=== PATIENT | female | born 1955 | race Caucasian/White ===

== ENCOUNTER 2017-04-02 07:35 | Day surgery (SDC) | payer OTHER ==
[2017-04-02] MEDS ORDERED: POVIDONE-IODINE 5% OPH PREP SOLN 30 ML ONE (09:19)
[2017-04-02] MEDS ORDERED: LIDOCAINE 2% INJ (20 MG/ML) 20 ML MDV ONE (09:19)
[2017-04-02] MEDS ORDERED: TETRACAINE HCL 0.5% OPH SOLN 2 ML ONE (09:19)
[2017-04-02] MEDS ORDERED: BUPIVACAINE HCL 0.75% INJ/PF (7.5 MG/1 ML) 10 ML SDV ONE ×2 (09:19→09:22)
[2017-04-02] MEDS ORDERED: THROMBIN (BOVINE) TOPICAL 5000 UNIT VIAL ONE (09:20)
[2017-04-02] MEDS ORDERED: NEO/POLYMYX B SULF/DEXAMETH OPH OINTMENT 3.5 GM ONE (09:20)
[2017-04-02] MEDS ORDERED: LIDOCAINE 2%/EPINEPHRINE INJ 20 ML VIAL ONE (09:21)
[2017-04-02] MEDS ORDERED: LIDOCAINE 2% INJ-PF (20 MG/ML) 10 ML AMPUL ONE (09:42)
[2017-04-02] MEDS ORDERED: PROPOFOL INJ 200 MG/20 ML VIAL IV ONE (09:42)
[2017-04-02] MEDS ORDERED: MIDAZOLAM 2 MG/2 ML INJ ONE (09:42)
[2017-04-02] MEDS ORDERED: FENTANYL CITRATE INJ/PF 100 MCG/2 ML AMPUL ONE (09:42)
[2017-04-02] MEDS: TOBRAMYCIN SULFATE/DEXAMETH OPH OINTMENT 3.5 GM ONE ×2 (10:56)
--- NOTE | 2017-04-02 11:28 | [facility] DISCHARGE SUMMARY E ---
[facility] Discharge Summary NAME: KILEY SALDAÑA AGE: 61Y ADMITTED: 04/02/2017 DISCHARGED: 04/02/2017 FINAL DIAGNOSIS: Bilateral upper eyelid dermatochalasis with visual field loss. HOSPITAL COURSE: The patient is a 61-year-old lady who underwent uneventful upper eyelid blepharoplasty. She will be discharged to home. She was instructed to resume preoperative medications. She will use TobraDex ointment on her eyelids tonight and begin Stratamed ointment twice a day tomorrow. She was instructed to use the blepharoplasty ice pack 10 minutes out of every hour while awake for the first 24 hours and to keep the head of her bed elevated. She will follow up in my office in 1 week. DICTATING PHYSICIAN: ANNIE SALMERON M.D. [id number] PHY#: [id number] ID: [id number] JOB#: [id number] ACCT: [id number] cc:ANNIE SALMERON M.D. >
--- NOTE | 2017-04-02 11:54 | [facility] OPERATIVE REPORT E ---
[facility] Operative Report NAME: KILEY SALDAÑA AGE: 61Y DATE OF SURGERY: 04/02/2017 ROOM: PREOPERATIVE DIAGNOSIS: Bilateral upper eyelid dermatochalasis with visual field loss. POSTOPERATIVE DIAGNOSIS: Bilateral upper eyelid dermatochalasis with visual field loss. PROCEDURE PERFORMED: Bilateral upper eyelid blepharoplasty. SURGEON: ANNIE SALMERON M.D. ANESTHESIA: Local with MAD. INDICATIONS FOR SURGERY: Patient complains that her upper lids interfere with her vision and having to raise her upper lids with fingers to improve her peripheral vision. PROCEDURE: The patient was brought to the operating room and under monitored anesthesia care, tetracaine drops were placed in the eyes. Both eyelids were sterilely prepped and draped in the usual manner. Attention was directed to both upper lids where the upper lid crease was marked with a marking pen and 0.3 mm forceps were used to estimate the excess upper eyelid skin to be excised. This was marked in an elliptical fashion. Local anesthesia was administered which consisted of 3 mL of 2% Xylocaine with epinephrine mixed with 0.75% Marcaine. This was placed in both upper lids and diffused with a Q-Tip. Attention was directed to the left upper lid where the elliptical piece of skin was removed. Hemostasis was obtained with bipolar cautery. The orbital septum was opened in prolapsed retroseptal fashion and was grasped with a hemostat, cut and cauterized. Thrombin was placed on the incision. An identical procedure was performed on the right upper eyelid. Wound closure was completed with interrupted silk sutures, 3 sutures spaced equally through the lid, taking a deep bite of the fascia. Additional closure was completed with running 6-0 nylon sutures in both upper lids. There was good hemostasis and closure of the lids at the end of the surgery. TobraDex ointment was placed on the lids. The patient tolerated the procedure well and was sent to the recovery room in good condition. DICTATING PHYSICIAN: ANNIE SALMERON M.D. [id number] PHY#: [id number] ID: [id number] JOB#: [id number] ACCT: [id number] cc:ANNIE SALMERON M.D. >
== END 2017-04-02 11:52 | disposition home or self-care (01) ==
LOC: SC 07:35
PROVIDERS: ATTEND Ophthalmology
PROC: 080N0ZZ Alteration of Right Upper Eyelid, Open Approach (ICD-10-PCS; 2017-04-02)
PROC: 080P0ZZ Alteration of Left Upper Eyelid, Open Approach (ICD-10-PCS; principal; 2017-04-02 09:00)
DX: H02.831 Dermatochalasis of right upper eyelid (principal); H02.834 Dermatochalasis of left upper eyelid; H53.453 Other localized visual field defect, bilateral; I10 Essential (primary) hypertension; E78.00 Pure hypercholesterolemia, unspecified; M19.90 Unspecified osteoarthritis, unspecified site; Z88.8 Allergy status to other drugs, medicaments and biological substances; Z88.2 Allergy status to sulfonamides; Z79.1 Long term (current) use of non-steroidal anti-inflammatories (NSAID); Z79.899 Other long term (current) drug therapy; Z91.040 Latex allergy status
CPT/HCPCS: 15823; J2250; J3490 ×6; J3010; J2704; 103

== ENCOUNTER → 2018-11-03 | Outpatient (CLI) | payer MEDICARE, OTHER ==
--- NOTE | 2018-11-03 14:56 | WOMENS IMAGING REPORT ---
EXAM DESCRIPTION: 3D SCREENING MAMMO BILAT COMPLETED DATE/TIME: 11/03/2018 11:56 am REASON FOR STUDY: ROUTINE 3D BILATERAL SCREENING,Z12.31 Z12.31 ENCNTR SCREEN MAMMOGRAM FOR MALIGNAN T NEOPLASM OF KAYD COMPARISON: 2016 TECHNIQUE: Standard craniocaudal and mediolateral oblique views of each breast recorded using digita l acquisition and breast tomosynthesis. LIMITATIONS: None. FINDINGS: No masses, calcifications or architectural distortion. No areas of suspicion. Read with the assistance of CAD. .[facility] - R2 Cenova Version 1.3 .[facility] - R2 Cenova Version 1.3 .[facility] - R2 Cenova Version 2.4 .[facility] - R2 Cenova Version 2.4 .[facility] - R2 Brake Lining Finisher Version 9.2 IMPRESSION: NORMAL MAMMOGRAM. BIRADS 1. BREAST DENSITY: b. There are scattered areas of fibroglandular density. BIRAD: 1 NEGATIVE RECOMMENDATION: ROUTINE SCREENING COMMENT: The patient has been notified of the results by letter per SA requirements. Additional no tification policies are in place for contacting patient with suspicious or incomplete findings. Quality ID #225: The [employer] recommends an annual screening mammogram for women aged 40 years or over. This facility utilizes a reminder system to ensure that all patients receive reminder letters, and/or direct phone calls for appointments. This includes reminders for routine scr eening mammograms, diagnostic mammograms, or other Breast Imaging Interventions when appropriate. Th is patient will be placed in the appropriate reminder system. The [employer] (ACR) has developed recommendations for screening MRI of the breast s in certain patient populations, to be used in conjunction with mammography. Breast MRI surveillanc e may be appropriate for women with more than 20% lifetime risk of developing breast cancer as deter mined by genetic testing, significant family history of the disease, or history of mantle radiation f or Hodgkins Disease. ACR Practice Guidelines 2008. DBT Technology DBT is a type of tomographic mammography. With conventional mammography, overlapping breast tissue ma y make lesions difficult to detect, even with good compression. DBT uses an x-ray tube that rotates a round the breast, taking images at different angles. These images are then combined to create thin sl ices of the breast that the radiologist can view as a 3D reconstruction. The Loffles unit can perform full-field digital mammograms (2D imaging); or DBT (3D imaging); or both, in a combination mode that quickly performs both the mammogram and the tomosynthesis scan while the breast is still compressed. PQRS 6045F: Fluoroscopic imaging is not utilized for breast tomosynthesis. TECHNICAL DOCUMENTATION: FINDING NUMBER: (1) ASSESSMENT: (1) JOB ID: [id number] [employer] All Rights Reserved Reading location - IP/workstation name: [email or web address]
== END ==
LOC: WI 11:16
PROVIDERS: ATTEND Internal Medicine
DX: Z12.31 Encounter for screening mammogram for malignant neoplasm of breast (principal)
CPT/HCPCS: 77063; 77067

== ENCOUNTER 2019-03-14 09:27 | Day surgery (SDC) | payer MEDICARE, OTHER ==
[~2019-03-14 09:27] MED LIST: BUPIVACAINE HCL 0.75% INJ/PF (7.5 MG/1 ML) 10 ML SDV OD PRN; EPINEPHRINE INJ/PF 1 MG/1 ML AMPULE ONE; KETOROLAC TROMETHAMINE 0.45% 4 DROP/0.4 ML DROPERETTE OD PRN; LIDOCAINE 4% INJ/PF (40 MG/ML) 5 ML AMPUL OD PRN
[2019-03-14] MEDS: TROPICAMIDE 1% OPH SOLN 3 ML OD PRN ×3 (10:08→10:31)
[2019-03-14] MEDS: CYCLOPENTOLATE 0.2%/PHENYLEPHRINE 1% OPH SOLN 2 ML OD PRN ×3 (10:08→10:31)
[2019-03-14] MEDS: BESIFLOXACIN HCL 0.6% OPH SUSP 5 ML BOTTLE OD PRN ×4 (10:09→10:58)
[2019-03-14] MEDS: TETRACAINE HCL 0.5% OPH SOLN 0.6 ML DROPERETTE OD PRN ×3 (10:10→10:36)
[2019-03-14] MEDS ORDERED: FENTANYL CITRATE INJ/PF 100 MCG/2 ML AMPUL ONE (10:40)
[2019-03-14] MEDS ORDERED: MIDAZOLAM 2 MG/2 ML INJ ONE (10:40)
[2019-03-14] MEDS: CHONDR SU A NA/HYALUR INTRAOC KIT (SURGICARE) ONE ×2 (10:46)
[2019-03-14] MEDS: LIDOCAINE 1% INJ-PF (10 MG/ML) 30 ML SDV ONE ×2 (10:46)
[2019-03-14] MEDS: PHENYLEPHRINE/KETOROLAC 1%-0.3% 4 ML VIAL ONE ×2 (10:46)
[2019-03-14] MEDS: DORZOLAMIDE HCL 2%/TIMOLOL MALEAT 0.5% OPH SOLN 10 ML OD PRN ×2 (10:58)
--- NOTE | 2019-03-14 13:35 | [facility]ARE OPERATIVE REPORT E ---
[facility] Operative Report NAME: KILEY SALDAÑA AGE: 63Y DATE OF SURGERY: 03/14/2019 ROOM: PREOPERATIVE DIAGNOSIS: Cataract, right eye. POSTOPERATIVE DIAGNOSIS: Cataract, right eye. PROCEDURE PERFORMED: Phacoemulsification with posterior chamber intraocular lens, right eye. SURGEON: ANNIE SALMERON M.D. ANESTHESIA: Topical with MAC. INDICATIONS FOR SURGERY: Difficulty driving at night. PROCEDURE: The patient was brought to the operating room and placed on the operative table. Following tetracaine drops, topical anesthesia was administered. This consisted of instrument wipe pledgets soaked in a solution of 4% Xylocaine mixed with 0.75% Marcaine in a 1:2 ratio. A 2 x 1 cm pledget was placed in the superior fornix. A 1 x 1 cm pledget was placed in the inferior fornix. The eye was patched shut for 5 minutes. The patch was removed. The eye was sterilely prepped and draped in the usual manner. Lid speculum was placed in the eye. The pledgets were removed and 4-0 black silk sutures were placed around the superior and the inferior rectus muscles to be used as traction. A conjunctival peritomy was made at the 10 o'clock position. Hemostasis was obtained with bipolar cautery. A posterior limbal groove was created using a crescent knife and dissected anteriorly towards the cornea. A sharp point blade was used to create a paracentesis site at the 2 o'clock position. A 2.4 mm keratome was used to enter the anterior chamber through the groove. Viscoelastic was injected into the anterior chamber. An anterior capsulotomy was performed using Utrata forceps in a capsulorrhexis fashion. Hydrodissection and hydrodelineation were performed. Phacoemulsification was performed in wokpby-ecb-boqsyix technique. Total phaco time was 3.87 CDE. Following this, the I/A unit was used to remove residual cortex. Viscoelastic was injected into the capsular bag. Intraocular lens model ZCBOO, 26.5 diopters, serial number [id number], was placed in the capsular bag. The I/A unit was used to remove residual viscoelastic. The wound was seen to be watertight under high and low pressure, and no sutures were placed. The intraocular lens was well centered. The pressure was adjusted in the eye to normal pressure. The 4-0 black silk sutures and lid speculum were removed. The eye was shielded after Besivance drops were placed. The patient tolerated the procedure well and was sent to the recovery room in good condition. A drop of Cosopt was placed in the eye at the end of surgery. DICTATING PHYSICIAN: ANNIE SALMERON M.D. [id number] PHY#: [id number] ID: [id number] JOB#: [id number] ACCT: [id number] cc:ANNIE SALMERON M.D. > MTDD
--- NOTE | 2019-03-14 13:35 | [facility]ARE DISCHARGE SUMMARY E ---
[facility] Discharge Summary NAME: KILEY SALDAÑA AGE: 63Y ADMITTED: 03/14/2019 DISCHARGED: 03/14/2019 FINAL DIAGNOSIS: Cataract, right eye. HOSPITAL COURSE: The patient is a 63-year-old lady who underwent uneventful cataract extraction with intraocular lens implant, right eye, on 03/14/2019. She will be discharged to home. She was instructed to resume preoperative medications; to take Tylenol as needed for discomfort; to keep her eye shielded; to use Durezol, Ilevro, and Besivance at 3 p.m. and 8 p.m.; and to follow up in my office in 1 day. DICTATING PHYSICIAN: ANNIE SALMERON M.D. [id number] PHY#: [id number] ID: [id number] JOB#: [id number] ACCT: [id number] cc:ANNIE SALMERON M.D. >
== END 2019-03-14 11:35 | disposition home or self-care (01) ==
LOC: SC 09:27
PROVIDERS: ATTEND Ophthalmology
DX: H25.813 Combined forms of age-related cataract, bilateral (principal); G51.32 Clonic hemifacial spasm, left; E11.9 Type 2 diabetes mellitus without complications; I10 Essential (primary) hypertension; E78.00 Pure hypercholesterolemia, unspecified; I49.9 Cardiac arrhythmia, unspecified; K21.9 Gastro-esophageal reflux disease without esophagitis; Z79.899 Other long term (current) drug therapy
CPT/HCPCS: 66984; V2632; J2250; J3490 ×4; A9270; J3010; C9447; 142; J0171

== ENCOUNTER 2019-04-04 07:48 | Day surgery (SDC) | payer MEDICARE, OTHER ==
[~2019-04-04 07:48] MED LIST changes: -BUPIVACAINE HCL 0.75% INJ/PF (7.5 MG/1 ML) 10 ML SDV OD PRN; +BUPIVACAINE HCL 0.75% INJ/PF (7.5 MG/1 ML) 10 ML SDV OS PRN; +CHONDR SU A NA/HYALUR INTRAOC KIT (SURGICARE) ONE; -KETOROLAC TROMETHAMINE 0.45% 4 DROP/0.4 ML DROPERETTE OD PRN; +KETOROLAC TROMETHAMINE 0.45% 4 DROP/0.4 ML DROPERETTE OS PRN; +LIDOCAINE 1% INJ-PF (10 MG/ML) 30 ML SDV ONE; -LIDOCAINE 4% INJ/PF (40 MG/ML) 5 ML AMPUL OD PRN; +LIDOCAINE 4% INJ/PF (40 MG/ML) 5 ML AMPUL OS PRN
[2019-04-04] MEDS: BESIFLOXACIN HCL 0.6% OPH SUSP 5 ML BOTTLE OS PRN ×4 (08:43→09:51)
[2019-04-04] MEDS: CYCLOPENTOLATE 0.2%/PHENYLEPHRINE 1% OPH SOLN 2 ML OS PRN ×3 (08:43→09:03)
[2019-04-04] MEDS: TROPICAMIDE 1% OPH SOLN 3 ML OS PRN ×3 (08:43→09:03)
[2019-04-04] MEDS: TETRACAINE HCL 0.5% OPH SOLN 0.6 ML DROPERETTE OS PRN ×2 (08:44→09:03)
[2019-04-04] MEDS ORDERED: MIDAZOLAM 2 MG/2 ML INJ ONE (08:59)
[2019-04-04] MEDS: DORZOLAMIDE HCL 2%/TIMOLOL MALEAT 0.5% OPH SOLN 10 ML OS PRN ×2 (09:38→09:51)
--- NOTE | 2019-04-04 11:45 | [facility]ARE DISCHARGE SUMMARY E ---
[facility] Discharge Summary NAME: KILEY SALDAÑA AGE: 63Y ADMITTED: 04/04/2019 DISCHARGED: 04/04/2019 FINAL DIAGNOSIS: CATARACT, LEFT EYE HOSPITAL COURSE: The patient is a 63-year-old lady who underwent uneventful cataract extraction with intraocular lens implant, left eye on 04/04/19. She will be discharged to home. She is instructed to resume preoperative medications, take Tylenol as needed for discomfort, to keep her eye shielded, to use Besivance, Durezol and Ilevro at 3 p.m. and 8 p.m., and to follow up in my office in 1 day. DICTATING PHYSICIAN: ANNIE SALMERON M.D. [id number] PHY#: [id number] ID: [id number] JOB#: [id number] ACCT: [id number] cc:ANNIE SALMERON M.D. >
--- NOTE | 2019-04-04 11:45 | [facility] OPERATIVE REPORT E ---
[facility] Operative Report NAME: KILEY SALDAÑA AGE: 63Y DATE OF SURGERY: 04/04/2019 ROOM: PREOPERATIVE DIAGNOSIS: CATARACT, LEFT EYE. POSTOPERATIVE DIAGNOSIS: CATARACT, LEFT EYE. PROCEDURE PERFORMED: PHACOEMULSIFICATION WITH POSTERIOR CHAMBER INTRAOCULAR LENS, LEFT EYE. SURGEON: ANNIE SALMERON MD ANESTHESIA: TOPICAL WITH MAC. PROCEDURE: The patient was brought to the Operating Room and placed on the operative table. Following tetracaine drops, topical anesthesia was administered. This consisted of instrument wipe pledgets soaked in a solution of 4% Xylocaine mixed with 0.75% Marcaine in a 1:2 ratio. A 2 x 1 cm pledget was placed in the superior fornix. A 1 x 1 cm pledget was placed in the inferior fornix. The eye was patched shut for 5 minutes. The patch was removed. The eye was sterilely prepped and draped in the usual manner. Lid speculum was placed in the eye. The pledgets were removed. 4-0 black silk sutures were placed around the superior and the inferior rectus muscles to be used as traction. A conjunctival peritomy was made at the 10 o'clock position. Hemostasis was obtained with bipolar cautery. A posterior limbal groove was created using a crescent knife and dissected anteriorly towards the cornea. A sharp point blade was used to create a paracentesis site at the 2 o'clock position. A 2.4 mm keratome was used to enter the anterior chamber through the groove. Viscoelastic was injected into the anterior chamber. An anterior capsulotomy was performed using Utrata forceps in a capsulorrhexis fashion. Hydrodissection and hydrodelineation were performed. Phacoemulsification was performed in aoqrtt-gsw-evajrzb technique. A total of 32 seconds phaco time was used. Following this, the I/A unit was used to remove residual cortex. Viscoelastic was injected into the capsular bag. Intraocular lens model ZCB00, 30.5 diopters, serial number [id number] was placed in the capsular bag. The I/A unit was used to remove residual viscoelastic. The wound was seen to be watertight under high and low pressure, and no sutures were placed. The intraocular lens was well centered. The pressure was adjusted in the eye to normal pressure. The 4-0 black silk sutures and lid speculum were removed. The eye was shielded after Besivance drops were placed. The patient tolerated the procedure well and was sent to the Recovery Room in good condition. A drop of Cosopt was placed in the eye at the end of surgery. Omidria was placed in the irrigation solution. DICTATING PHYSICIAN: ANNIE SALMERON M.D. DICTATING PHYSICIAN: ANNIE SALMERON M.D. [id number] PHY#: [id number] ID: [id number] JOB#: [id number] ACCT: [id number] cc:ANNIE SALMERON M.D. > MTDD
== END 2019-04-04 10:35 | disposition home or self-care (01) ==
LOC: SC 07:48
PROVIDERS: ATTEND Ophthalmology
DX: H25.812 Combined forms of age-related cataract, left eye (principal); Z96.1 Presence of intraocular lens; K21.9 Gastro-esophageal reflux disease without esophagitis; I49.9 Cardiac arrhythmia, unspecified; Z91.040 Latex allergy status; Z79.899 Other long term (current) drug therapy
CPT/HCPCS: 66984; 00142; V2632; J2250; J3490 ×4; A9270; J0171; 142

== ENCOUNTER → 2019-11-07 | Outpatient (CLI) | payer MEDICARE, OTHER ==
--- NOTE | 2019-11-07 10:34 | WOMENS IMAGING REPORT ---
EXAM DESCRIPTION: 3D SCREENING MAMMO BILAT COMPLETED DATE/TIME: 11/07/2019 9:49 am REASON FOR STUDY: Z12.31 SCREENING MAMMO Z12.31 ENCNTR SCREEN MAMMOGRAM FOR MALIGNANT NEOPLASM OF B RE Z78.0 ASYMPTOMATIC MENOPAUSAL STATE COMPARISON: 2019 EXAM PARAMETERS: Views: Standard craniocaudal and mediolateral oblique views of each breast recorded using digital acquisition and breast tomosynthesis. Read with the assistance of CAD. .[facility] - [place] Dresser Tender Version 9.2 LIMITATIONS: None. FINDINGS: No suspicious masses, suspicious calcifications or architectural distortion. No areas of c oncern. IMPRESSION: NEGATIVE MAMMOGRAM. BIRADS 1. BREAST DENSITY: b. There are scattered areas of fibroglandular density. BIRAD: ASSESSMENT: 1 NEGATIVE RECOMMENDATION: ROUTINE SCREENING COMMENT: The patient has been notified of the results by letter per MQSA requirements. Additional no tification policies are in place for contacting patient with suspicious or incomplete findings. Quality ID #225: The [employer] recommends an annual screening mammogram for women aged 40 years or over. This facility utilizes a reminder system to ensure that all patients receive reminder letters, and/or direct phone calls for appointments. This includes reminders for routine scr eening mammograms, diagnostic mammograms, or other Breast Imaging Interventions when appropriate. Th is patient will be placed in the appropriate reminder system. TECHNICAL DOCUMENTATION: FINDING NUMBER: (1) ASSESSMENT: (1) JOB ID: [id number] [employer] [facility]- All Rights Reserved Reading location - IP/workstation name: [email or web address]
--- NOTE | 2019-11-07 14:04 | WOMENS IMAGING REPORT ---
EXAM DESCRIPTION: BONE DENSITY HIP/SPINE COMPLETED DATE/TIME: 11/07/2019 9:39 am REASON FOR STUDY: Z78.0 BONE DENSITY Z12.31 ENCNTR SCREEN MAMMOGRAM FOR MALIGNANT NEOPLASM OF KADY Z 78.0 ASYMPTOMATIC MENOPAUSAL STATE COMPARISON: None. TECHNIQUE: Dual-Energy X-ray Absorptiometry (DEXA) of the AP Spine and Hip. LIMITATIONS: None. FINDINGS: LUMBAR SPINE: The bone mineral density (BMD) measured from L1-L4 in the AP projection correlates with a T-score of -0.7, which is normal as defined by the World Health Organization. BMD Change vs Baseline: N/A HIP: The bone mineral density (BMD) measured in the left hip correlates with a T-score of -0.9 in the neck , which is normal as defined by the World Health Organization. BMD Change vs Baseline: N/A 10 year Fracture Risk Assessment: Major Osteoporotic Fracture: Not available. Hip Fracture: Not available. IMPRESSION: 1. LUMBAR SPINE WHO CLASSIFICATION: NORMAL. 2. HIP WHO CLASSIFICATION: NORMAL. OVERALL ASSESSMENT: WHO CLASSIFICATION: NORMAL. COMMENT: The World Health Organization defines low BMD as follows: T-score: Normal: Greater than -1.0 Osteopenia: Between -1.0 and -2.5 Osteoporosis: Less than -2.5 without fractures Established osteoporosis: Less than -2.5 with fractures In general, you may wish to consider: Diagnosis Treatment Follow-up DEXA Normal BMD Prevention 2-3 years Osteopenia Prevention/Therapy 1-2 years Osteoporosis Therapy Yearly TECHNICAL DOCUMENTATION: JOB ID: [id number] [email or web address]- All Rights Reserved Reading location - IP/workstation name: [email or web address]
== END ==
LOC: WI 09:15
PROVIDERS: ATTEND Physician Assistant
DX: Z12.31 Encounter for screening mammogram for malignant neoplasm of breast (principal); Z78.0 Asymptomatic menopausal state
CPT/HCPCS: 77063; 77067; 77080

== ENCOUNTER 2019-12-28 15:29 | Emergency (ER) | payer MEDICARE, OTHER ==
[2019-12-28] MEDS ORDERED: HYDROCODONE/ACETAMINOPHEN 10-325 MG TABLET PO ONE (15:41)
--- NOTE | 2019-12-28 15:47 | ER Document Report ---
ED Medical Screen (RME) - General Chief Complaint: Fall Injury Stated Complaint: FALL/RIGHT ELBOW PAIN, SWELLING Time Seen by Provider: 12/28/19 15:38 Primary Care Provider: NORA BELL PA-C [Primary Care Provider] - Follow up as needed TRAVEL OUTSIDE OF THE [place] IN LAST 30 DAYS: No - HPI Notes: 12/28/19 15:41 64-year-old female presents emergency room from [facility] after she "broke my right elbow" after tripping over edging while outside a couple hours ago. Patient did come with a CD of her x-ray images on there she states that her food safety field specialist told her that she is going to need "surgery". denies any other area of injury, denies hitting her head or change in level consciousness. Patient is in a right elbow sling. [facility] called for clarification in the states that patient needs to have her elbow reduced to because they did not attempt to do any reduction at the clinic. I have greeted and performed a rapid initial assessment of this patient. A comprehensive ED assessment and evaluation of the patient, analysis of test results and completion of the medical decision making process will be conducted by additional ED providers. PHYSICAL EXAMINATION: GENERAL: Well-appearing, well-nourished and in no acute distress. CV: s1, s2 regular LUNGS: No respiratory distress Musculoskeletal: Normal range of motion. right elbow in sling. 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 skin warm to touch. 12/28/19 16:00 - Related Data Allergies/Adverse Reactions: latex [Latex] Allergy (Mild, Verified 06/19/13 07:55) Sulfa (Sulfonamide Antibiotics) Allergy (Verified 06/29/14 19:48) Past Medical History - Past Medical History Cardiac Medical History: Reports: Hx Coronary Artery Disease, Hx Hypercholesterolemia Denies: Hx Heart Attack, Hx Hypertension Pulmonary Medical History: Denies: Hx Asthma, Hx Bronchitis, Hx COPD, Hx Pneumonia Neurological Medical History: Denies: Hx Cerebrovascular Accident, Hx Seizures GI Medical History: Denies: Hx Hepatitis, Hx Hiatal Hernia, Hx Ulcer Musculoskeltal Medical History: Reports Hx Arthritis - knees, hands feet, Reports Hx Musculoskeletal Deformity, Reports Hx Musculoskeletal Trauma Infectious Medical History: Denies: Hx Hepatitis Past Surgical History: Reports: Hx Hysterectomy, Hx Orthopedic Surgery - knee replacement and left wrist surgery. Denies: Hx Mastectomy, Hx Open Heart Surgery, Hx Pacemaker - Immunizations Hx Diphtheria, Pertussis, Tetanus Vaccination: Yes - 06/29/14 Doctor's Discharge - Discharge Referrals: NORA BELL PA-C [Primary Care Provider] - Follow up as needed
[2019-12-28] MEDS ORDERED: NORMAL SALINE 500 ML IV ONE (16:19)
[2019-12-28] MEDS ORDERED: ONDANSETRON HCL INJ/PF 4 MG/2 ML SDV IV ONE ×2 (16:21→18:50)
[2019-12-28] MEDS ORDERED: MORPHINE SULFATE 10 MG/ML INJ IV ONE (16:21)
--- NOTE | 2019-12-28 16:22 | RADIOLOGY REPORT (SQ) ---
EXAM DESCRIPTION: ELBOW RIGHT AP/LAT COMPLETED DATE/TIME: 12/28/2019 4:09 pm REASON FOR STUDY: right elbow pain s/p fall COMPARISON: None. NUMBER OF VIEWS: Three views. TECHNIQUE: AP, lateral, and single oblique radiographic images acquired of the right elbow. LIMITATIONS: None. FINDINGS: MINERALIZATION: Normal. BONES: Bone fragment lies within the olecranon fossa this is consistent with acute avulsion injury. JOINT: Dislocated elbow humerus is displaced anteriorly and medially. SOFT TISSUES: No soft tissue swelling. No foreign body. OTHER: No other significant finding. IMPRESSION: Fracture dislocation of the elbow as described. TECHNICAL DOCUMENTATION: JOB ID: [id number] [employer]- All Rights Reserved Reading location - IP/workstation name: [email or web address]
--- NOTE | 2019-12-28 16:24 | ER Document Report ---
ED Extremity Problem, Upper - General Chief Complaint: Arm Injury Stated Complaint: FALL/RIGHT ELBOW PAIN, SWELLING Time Seen by Provider: 12/28/19 15:38 Primary Care Provider: NORA BELL PA-C [Primary Care Provider] - Follow up as needed Notes: CHIEF COMPLAINT: Right elbow injury HPI: 64-year-old female sent over to the emergency department from the [facility] office where she saw Dr. Ramírez Pizano for right arm injury. Patient had mechanical fall going forward. Patient states she was told her elbow was dislocated and they could not sedate her in the office to put it back in place so they sent her to the emergency department. Patient denies numbness or tingling in the fingertips. Denies other injuries or complaints at this time ROS: See HPI - all other systems were reviewed and are otherwise negative Constitutional: no fever or recent illness Eyes: no drainage, no blurred vision ENT: no runny nose, no sore throat Cardiovascular: no chest pain Resp: no SOB, no cough GI: no vomiting, no diarrhea : no dysuria Integumentary: no rash Allergy: no hives Musculoskeletal: + extremity pain or swelling Neurological: no numbness/tingling, no weakness MEDICATIONS: I agree with the patient medications as charted by the RN. ALLERGIES: I agree with the allergies as charted by the RN. PAST MEDICAL HISTORY/PAST SURGICAL HISTORY: Reviewed and agree as charted by RN. SOCIAL HISTORY: Reviewed and agree as charted by RN. FAMILY HISTORY: No significant familial comorbid conditions directly related to patient complaint EXAM: Reviewed vital signs as charted by RN. CONSTITUTIONAL: Airway patent; alert and oriented and responds appropriately to questions. Well-appearing, well-nourished, moderate distress secondary to pain HEAD: Normocephalic, atraumatic EYES: PERRL; EOM intact; Conjunctivae clear, sclerae non-icteric ENT: Midface is stable without tenderness; normal nose; no bleeding; normal pharynx, normal voice, no stridor, no intraoral lacerations or dental trauma noted NECK: Trachea is midline; spine non-tender, no step-offs, good range of motion; no contusions or hematomas CARD: Normal symmetric pulses; RRR; no murmurs, no clicks, no rubs, no gallops RESP: Normal chest excursion with respiration; chest wall appears atraumatic without ecchymoses or crepitance; Breath sounds clear and equal bilaterally ABD/GI: Appears atraumatic without contusions or hematomas; non-distended, soft, non-tender, no rebound, no guarding; no palpable organomegaly or masses PELVIS: Stable, nontender BACK: The back appears atraumatic, no step-offs; spine is nontender; there is no CVA tenderness EXT: Deformity noted at the right elbow. Radial and ulnar pulses are present in the right wrist. Patient is able to move the fingers of the right hand and has intact sensation to touch with capillary refill less than 3 seconds. No pain on palpation of the right shoulder region SKIN: Normal color for age and race; warm; dry; good turgor; no apparent lesions NEURO: Moves all extremities equally; sensory function intact PSYCH: The patient's mood and manner are appropriate. MDM: I spoke with Dr. Sewell orthopedics. He has reviewed the images. States that we can attempt reduction in the emergency department, if we are able to reduce the patient place her in a posterior splint, obtain CT prior to discharge and he will follow the patient in the office. States that if we have any difficulty with the reduction call him back he will come in to reduce the elbow. patient has been evaluated by Dr. Hollis, Attending TRAVEL OUTSIDE OF THE [place] IN LAST 30 DAYS: No - Related Data Allergies/Adverse Reactions: latex [Latex] Allergy (Mild, Verified 06/19/13 07:55) Sulfa (Sulfonamide Antibiotics) Allergy (Verified 06/29/14 19:48) Past Medical History - Social History Smoking Status: Never Smoker Family History: Reviewed & Not Pertinent Patient has suicidal ideation: No Patient has homicidal ideation: No - Past Medical History Cardiac Medical History: Reports: Hx Coronary Artery Disease, Hx Hypercholesterolemia Denies: Hx Heart Attack, Hx Hypertension Pulmonary Medical History: Denies: Hx Asthma, Hx Bronchitis, Hx COPD, Hx Pneumonia Neurological Medical History: Denies: Hx Cerebrovascular Accident, Hx Seizures GI Medical History: Denies: Hx Hepatitis, Hx Hiatal Hernia, Hx Ulcer Musculoskeletal Medical History: Reports Hx Arthritis - knees, hands feet, Reports Hx Musculoskeletal Deformity, Reports Hx Musculoskeletal Trauma Infectious Medical History: Denies: Hx Hepatitis Past Surgical History: Reports: Hx Hysterectomy, Hx Orthopedic Surgery - knee replacement and left wrist surgery. Denies: Hx Mastectomy, Hx Open Heart Surgery, Hx Pacemaker - Immunizations Hx Diphtheria, Pertussis, Tetanus Vaccination: Yes - 06/29/14 Hx Pneumococcal Vaccination: 08/04/08 Physical Exam - Vital signs Vitals: Pulse Ox 99 12/28/19 16:46 Course - Re-evaluation Re-evalutation: 12/28/19 17:51 After splinting the patient in position where she was clinically reduced the nurse called the x-ray tech for post reduction film, I placed an order for a post reduction film. I also placed an order for CT imaging to better delineate the fractures for the orthopedic surgeon per his request. The x-ray tech never did the film but instead the patient was taken to CT imaging, on the machine chocolate molder film patient appears to be posterior dislocated again. I spoke with Dr. Sewell the orthopedist client professional who will come in to help us re-reduce the elbow 12/28/19 18:50 Dr. Sewell at bedside, requesting additional sedation for patient for reduction 12/28/19 19:[address] Sewell, he is satisfied with the postreduction film. Request CT prior to discharge, he will follow patient in office - Vital Signs Vital signs: Temp Pulse Resp BP Pulse Ox 74 26 H 155/90 H 98 12/28/19 18:57 12/28/19 19:26 12/28/19 19:26 12/28/19 19:26 Procedures - Immobilization Right Posterior Arm Time completed: 17:30 Pre-Proc Neuro Vasc Exam: Normal Immobilizer type: Long arm posterior Performed by: Provider, PCT Post-Proc Neuro Vasc Exam: Normal, Unchanged from pre-exam Alignment checked and good: Yes Discharge - Discharge Clinical Impression: Dislocation, elbow closed Qualifiers: Encounter type: initial encounter Laterality: right Qualified Code(s): S53.104A - Unspecified dislocation of right ulnohumeral joint, initial encounter Fracture of elbow, closed Qualifiers: Encounter type: initial encounter Laterality: right Qualified Code(s): S42.401A - Unspecified fracture of lower end of right humerus, initial encounter for closed fracture Condition: Stable Disposition: HOME, SELF-CARE Instructions: Splint Precautions ([facility]) Additional Instructions: Ice and elevate the right elbow as much as possible to help with swelling. Pain medication as prescribed no driving if taking narcotics watch for balance issues if taking narcotics. Follow-up closely with Dr. Sewell in office for further evaluation call tomorrow to obtain appointment. If you develop unc ontrolled pain, increasing numbness or tingling in the fingers return for reevaluation Prescriptions: Oxycodone HCl/Acetaminophen [Percocet 5-325 mg Tablet] 1 tab PO Q4H PRN #25 tab PRN Reason: Referrals: NORA BELL PA-C [Primary Care Provider] - Follow up as needed OSITO SEWELL JR, DO [ACTIVE PROVISIONAL STAFF] - Follow up as needed
[2019-12-28] MEDS ORDERED: ETOMIDATE INJ/PF 20 MG/10 ML SDV IV ONE ×2 (16:29→18:49)
--- NOTE | 2019-12-28 18:07 | RADIOLOGY REPORT (SQ) ---
EXAM DESCRIPTION: CT RT UPPER EXTREMITY WITHOUT COMPLETED DATE/TIME: 12/28/2019 5:49 pm REASON FOR STUDY: elbow pre surgury COMPARISON: None. EXAM PARAMETERS: TECHNIQUE:Axial imaging performed through the right elbow with reformatted coronal and sagittal imaging windowed for bone and soft tissues. Images saved to PACS. 3D IMAGING: Were 3D images as MIP, SSD, or volume rendering performed at the work station? No All CT scanners at this facility use dose modulation, iterative reconstruction, and/or weight based d osing when appropriate to reduce radiation dose to as low as reasonably achievable (ALARA). [facility]: Dose Right [facility]: SureCare [facility]: Dose Right [facility]: Teradose 4D [facility]: [employer] RADIATION DOSE: CT Rad equipment meets quality standard of care and radiation dose reduction techniqu es were employed. CTDIvol: 2.6 mGy. DLP: 66 mGy-cm. mGy. LIMITATIONS: None. FINDINGS: SOFT TISSUES: No obvious swelling or foreign body. BONES: No major fractures seen. The humeral ulnar joint is dislocated. There is a small fragment of bone near the radial head. There is a small fragment of bone anterior to the distal humerus. The c oronoid process of the ulna appears to be impacted on the distal humerus. MINERALIZATION: Normal. OTHER: No other significant finding. IMPRESSION: Dislocation. Minor fractures. The coronoid process of the ulna is impacted on the dist al humerus. TECHNICAL DOCUMENTATION: JOB ID: [id number] [facility] [id number]: Final reports with documentation of one or more dose reduction techniques (e.g., Automate d exposure control, adjustment of the mA and/or kV according to patient size, use of iterative recons truction technique) 2010 [employer]- All Rights Reserved Reading location - IP/workstation name: [email or web address]
[2019-12-28] MEDS ORDERED: FENTANYL CITRATE INJ/PF 100 MCG/2 ML AMPUL IV ONE (18:29)
--- NOTE | 2019-12-28 19:27 | PDOC CONSULTATION ---
Consultation Consult Date: 12/28/19 Provider Consulted: OSITO SAEED JR History of Present Illness Admission Date/PCP: NORA BELL PA-C History of Present Illness: KILEY SALDAÑA is a 64 year old female who presents today with right elbow pain after a fall. She was quickly heading to her car and in her haste accidentally fell and landing on an outstretched hand sustaining an elbow injury deformity inability to move and severe pain. [facility] presented to [facility] where the orthopedic physician there was able to reduce her however it immediately lost its reduction and because of his instability he sent the patient to the emergency department. In the emergency department [facility] they were able to obtain successful reduction but between the time of reduction and transferring the patient to the CT scanner they found that she had already lost reduction. They contacted me for further evaluation and treatment. She reports pain to localized to the right elbow, no associated injury, no distal p aresthesia or loss of motor function. Pain is aching in nature 8 out of 10 with any motion improved with rest. She denies head injury or loss of consciousness. Past Medical History Cardiac Medical History: Reports: Coronary Artery Disease, Hyperlipidema Denies: Myocardial Infarction, Hypertension Pulmonary Medical History: Denies: Asthma, Bronchitis, Chronic Obstructive Pulmonary Disease (COPD), Pneumonia Neurological Medical History: Denies: Seizures GI Medical History: Denies: Hepatitis, Hiatal Hernia Musculoskeltal Medical History: Reports: Arthritis - knees, hands feet Hematology: Denies: Anemia, Sickle Cell Disease Past Surgical History Past Surgical History: Reports: Hysterectomy, Orthopedic Surgery - knee replacement and left wrist surgery Denies: Amputation, Mastectomy, Pacemaker Social History Smoking Status: Never Smoker Family History Family History: Reviewed & Not Pertinent Parental Family History Reviewed: No Children Family History Reviewed: NA Sibling(s) Family History Reviewed.: NA Medication/Allergy Home Medications: Omeprazole 20 mg PO BID 06/19/13 Ergocalciferol (Vitamin D2) [Vitamin D] 400 unit PO .QWEEKLY 03/26/17 Fexofenadine HCl [Rain Allergy] 180 mg PO DAILY 03/26/17 Montelukast Sodium [Singulair 10 mg Tablet] 10 mg PO QHS 03/26/17 Pravastatin Sodium 10 mg PO DAILY 03/26/17 Besifloxacin HCl [Besivance 0.6% Oph Susp 5 ml] 1 drop OP TID 03/08/19 Diclofenac Sodium [Voltaren] 100 gm TP DAILY 03/08/19 Difluprednate [Durezol] 5 ml OP .ASDIR 03/08/19 Nepafenac [Ilevro] 1.7 ml OP .ASDIR 03/08/19 Allergies/Adverse Reactions: latex [Latex] Allergy (Mild, Verified 06/19/13 07:55) Sulfa (Sulfonamide Antibiotics) Allergy (Verified 06/29/14 19:48) Review of Systems Review of Systems: Constitutional: ABSENT: anorexia, chills, night sweats Cardiovascular: ABSENT: chest pain Respiratory: ABSENT: dyspnea Gastrointestinal: ABSENT: vomiting Genitourinary: ABSENT: dysuria Integumentary: ABSENT: rash Neurological: ABSENT: confusion, memory loss, numbness Psychiatric: ABSENT: hallucinations Hematologic/Lymphatic: ABSENT: easy bleeding Physical Exam Vital Signs: Temp Pulse Resp BP Pulse Ox 85 18 134/63 H 100 12/28/19 17:10 12/28/19 17:10 12/28/19 17:10 12/28/19 17:10 Intake & Output 12/27/19 12/28/19 12/29/19 06:59 06:59 06:59 Intake Total 500 Balance 500 Physical Exam: General appearance: PRESENT: no acute distress, cooperative, well-nourished Head exam: PRESENT: atraumatic, normocephalic Eye exam: PRESENT: EOMI Ear exam: PRESENT: normal external ear exam Mouth exam: PRESENT: neck supple Neck exam: ABSENT: tracheal deviation Respiratory exam: PRESENT: symmetrical, unlabored. ABSENT: accessory muscle use, wheezes Pulses: PRESENT: normal radial pulses, normal dorsalis pedis pulse Vascular exam: PRESENT: normal capillary refill GI/Abdominal exam: ABSENT: distended, firm Extremities exam: PRESENT: full ROM of bilateral shoulders, elbows wrists, knees, hips and ankles without pain Musculoskeletal exam: PRESENT: full ROM, normal inspection of all 4 extremities aside from that noted below. Neurological exam: PRESENT: alert, awake, oriented to person, oriented to place, oriented to time Psychiatric exam: PRESENT: appropriate affect. ABSENT: agitated Focused psych exam: ABSENT: catatonic Skin exam: PRESENT: intact. ABSENT: dry All as above aside from that noted in the HPI and the following: Right upper extremity Sensation is grossly intact distally Pulses 2+ Motor function grossly intact to radial, median, ulnar nerve There is gross deformity at the elbow with apparent dislocation. The skin is intact without abrasions and with mild ecchymosis. She is able to move it without severe pain. Results Impressions: Elbow X-Ray 12/28/19 15:50 IMPRESSION: Fracture dislocation of the elbow as described. Upper Extremity CT 12/28/19 17:23 IMPRESSION: Dislocation. Minor fractures. The coronoid process of the ulna is impacted on the distal humerus. Assessment & Plan - Diagnosis (1) Dislocation of right elbow Plan: PROCEDURE NOTE: The patient has had multiple dislocations and is unstable. I discussed risks and benefits of multiple treatment options and the potential need for surgery. After answering all questions the patient provided informed procedural consent for closed reduction in the emergency department under sedation. After adequate sedation a reduction maneuver was performed. Adequate reduction was obtained and the elbow was taken through an evaluation range of motion. She was found to be grossly unstable with pronation at approximately 90 degrees of flexion and any further extension. This was evaluated with the assistance of fluoroscopy and maintained reduction was confirmed. Supination found her to be stable throughout range of motion. We then splinted the patient in full supination and flexion of approximately 70 degrees. A well molded well-padded plaster sugar tong posterior splint was applied to the forearm and elbow. After this the patient was awakened from anesthesia and fluoroscopy was utilized again to ensure maintained reduction. The patient tolerated procedure well. At this point we will perform a CT scan of the right upper extremity in order to evaluate for any potential intra-articular fragments or other small fractures of the collateral ligaments attachments. She will follow-up with me in the office for further evaluation and management decision making. If she is to dislocate again she will have to return to the emergency department urgently and we will plan for operative intervention. The patient understands these plans.
--- NOTE | 2019-12-28 19:58 | RADIOLOGY REPORT (SQ) ---
EXAM DESCRIPTION: NO CHG FLUORO; ELBOW RIGHT AP/LAT COMPLETED DATE/TIME: 12/28/2019 7:33 pm REASON FOR STUDY: CLOSED REDUCTION RIGHT ELBOW COMPARISON: None. FLUOROSCOPY TIME: 9 seconds 4 Images saved to PACS LIMITATIONS: None. PROCEDURE: Close reduction of the right elbow FINDINGS: Images in fluoro document the reduction of the elbow dislocation. No major fracture is se en. IMPRESSION: Elbow reduction. Refer to operative note for further information. COMMENT: PQRS 6045F: Fluoroscopy time of the procedure is documented in the report. TECHNICAL DOCUMENTATION: JOB ID: [id number] 2010 [employer]- All Rights Reserved Reading location - IP/workstation name: [email or web address]
--- NOTE | 2019-12-28 19:58 | RADIOLOGY REPORT (SQ) ---
EXAM DESCRIPTION: NO CHG FLUORO; ELBOW RIGHT AP/LAT COMPLETED DATE/TIME: 12/28/2019 7:33 pm REASON FOR STUDY: CLOSED REDUCTION RIGHT ELBOW COMPARISON: None. FLUOROSCOPY TIME: 9 seconds 4 Images saved to PACS LIMITATIONS: None. PROCEDURE: Close reduction of the right elbow FINDINGS: Images in fluoro document the reduction of the elbow dislocation. No major fracture is se en. IMPRESSION: Elbow reduction. Refer to operative note for further information. COMMENT: PQRS 6045F: Fluoroscopy time of the procedure is documented in the report. TECHNICAL DOCUMENTATION: JOB ID: [id number] 2010 [employer]- All Rights Reserved Reading location - IP/workstation name: [email or web address]
--- NOTE | 2019-12-28 20:02 | RADIOLOGY REPORT (SQ) ---
EXAM DESCRIPTION: ELBOW RIGHT AP/LAT COMPLETED DATE/TIME: 12/28/2019 7:40 pm REASON FOR STUDY: post reduction COMPARISON: None. NUMBER OF VIEWS: Two views. TECHNIQUE: AP and lateral radiographic images acquired of the right elbow. LIMITATIONS: None. FINDINGS: MINERALIZATION: Normal. BONES: The dislocation has been reduced. No major fracture is appreciated. JOINT: No effusion. SOFT TISSUES: No soft tissue swelling. No foreign body. OTHER: No other significant finding. IMPRESSION: Successful reduction. TECHNICAL DOCUMENTATION: JOB ID: [id number] 2010 [employer]- All Rights Reserved Reading location - IP/workstation name: [email or web address]
--- NOTE | 2019-12-28 20:20 | RADIOLOGY REPORT (SQ) ---
EXAM DESCRIPTION: CT UPPER EXTREMITY WITHOUT IV CONTRAST COMPLETED DATE/TME: 12/28/2019 19:30 CLINICAL HISTORY: 64 years, Female, post reduction COMPARISON: Prior study from earlier the same day TECHNIQUE: Noncontrast CT of the right upper cavity was acquired. Coronal and sagittal reformations were created. Images stored on PACS. All CT scanners at this facility use dose modulation, iterative reconstruction, and/or weight based dosing when appropriate to reduce radiation dose to as low as reasonably achievable (ALARA). [facility]: Dose Right [facility]: CareDose [facility]: Dose Right [facility]: Teradose 4D [facility]: [employer] LIMITATIONS: None. FINDINGS: Overall, the study is somewhat limited by the presence of artifact related to the overlying splint material. Visualized soft tissues show no suspicious finding. Previously detailed ulnotrochlear/radiocapitellar joint dislocations have been reduced. Alignment now appears anatomic. Curvilinear ossific fragments are noted adjacent to the medial and lateral humeral and epicondyles, presumably indicating avulsion fracture fragments of uncertain origin. Previously detailed focal impaction fracture involving the coronoid process of the ulna is not as well delineated on this examination. IMPRESSION: Interval reduction of pre-existing ulnotrochlear/radiocapitellar joint dislocations. Alignment appears anatomic. Curvilinear ossific fragments located just medial and lateral to the medial and lateral epicondyles of the humerus indicate avulsion fracture fragments of uncertain origin. Previously detailed focal impaction fracture involving the coronoid process of the ulna is not as well delineated on this exam. TECHNICAL DOCUMENTATION: Quality ID # [id number]: Final reports with documentation of one or more dose reduction techniques (e.g., Automated exposure control, adjustment of the mA and/or kV according to patient size, use of iterative reconstruction technique) copyright 2011 [employer]- All Rights Reserved
[2019-12-28] MEDS ORDERED: HYDROCODONE/ACETAMINOPHEN 5-325 MG (6 TAB/ER DISP) PO PRN (20:33)
[2019-12-28 20:57] VITALS: BP 127/67
== END 2019-12-28 20:50 | disposition home or self-care (01) ==
LOC: ER 15:29
DX: S42.401A Unspecified fracture of lower end of right humerus, initial encounter for closed fracture (principal); S53.104A Unspecified dislocation of right ulnohumeral joint, initial encounter; W19.XXXA Unspecified fall, initial encounter; I25.10 Atherosclerotic heart disease of native coronary artery without angina pectoris; Z91.040 Latex allergy status; Z88.2 Allergy status to sulfonamides
CPT/HCPCS: 96376; 99284; 96361; 96374; 96375; 73070; 73200; 24999; J3010; J2270; J2405; J7040; J3490; A9270 ×2